=== PATIENT | female | born 1955 | race Hispanic/Latino ===

== ENCOUNTER → 2023-05-10 | Outpatient (CLI) | payer MEDICARE ==
[~2023-05-10] MED LIST: LIDOCAINE HCL 4% LTA SOL 4 ML VIAL TP ONE
== END | disposition home or self-care (01) ==
LOC: WHH 10:55
PROVIDERS: ATTEND Nurse Practitioner Family
DX: T81.89XA Other complications of procedures, not elsewhere classified, initial encounter (principal); S21.102D Unspecified open wound of left front wall of thorax without penetration into thoracic cavity, subsequent encounter; E11.622 Type 2 diabetes mellitus with other skin ulcer; L98.491 Non-pressure chronic ulcer of skin of other sites limited to breakdown of skin; I10 Essential (primary) hypertension; E11.65 Type 2 diabetes mellitus with hyperglycemia; F41.9 Anxiety disorder, unspecified; F17.290 Nicotine dependence, other tobacco product, uncomplicated; Z85.3 Personal history of malignant neoplasm of breast; Z90.710 Acquired absence of both cervix and uterus; Z90.12 Acquired absence of left breast and nipple; X58.XXXD Exposure to other specified factors, subsequent encounter; Y83.8 Other surgical procedures as the cause of abnormal reaction of the patient, or of later complication, without mention of misadventure at the time of the procedure; Y92.89 Other specified places as the place of occurrence of the external cause
CPT/HCPCS: G0463; A6197; A4450

== ENCOUNTER → 2023-05-17 | Outpatient (CLI) | payer MEDICARE | END | disposition home or self-care (01) | LOC: WHH 10:02 | PROVIDERS: ATTEND Nurse Practitioner Family | DX: T81.89XD Other complications of procedures, not elsewhere classified, subsequent encounter (principal); L89.153 Pressure ulcer of sacral region, stage 3; S21.102D Unspecified open wound of left front wall of thorax without penetration into thoracic cavity, subsequent encounter; E11.622 Type 2 diabetes mellitus with other skin ulcer; L98.491 Non-pressure chronic ulcer of skin of other sites limited to breakdown of skin; I10 Essential (primary) hypertension; E11.65 Type 2 diabetes mellitus with hyperglycemia; F41.9 Anxiety disorder, unspecified; F17.290 Nicotine dependence, other tobacco product, uncomplicated; Z85.3 Personal history of malignant neoplasm of breast; Z90.710 Acquired absence of both cervix and uterus; Z90.12 Acquired absence of left breast and nipple; X58.XXXD Exposure to other specified factors, subsequent encounter; Y83.8 Other surgical procedures as the cause of abnormal reaction of the patient, or of later complication, without mention of misadventure at the time of the procedure | CPT/HCPCS: G0463; A6209; A6197 ==

== ENCOUNTER 2023-06-18 14:53 | Inpatient (IN) | payer MEDICARE ==
[~2023-06-18] VITALS: Ht 152.4 cm; Wt 38.8 kg
[2023-06-18] MEDS: ONDANSETRON 4MG INJ IVP ONE (16:30)
[2023-06-18] MEDS: 0.9% NACL 500ML IV.SOLN 500 ML IV ONE (16:30)
[2023-06-18] MEDS: MORPHINE 2 MG SYG IVP ONE (16:30)
[2023-06-18 17:13] LABS: BASOPHILS # (AUTO) 0.08 K/uL (0.00-0.20); BASOPHILS % (AUTO) 0.3 % (0.0-5.0); EOSINOPHILS % (AUTO) 0.8 % (0.0-8.0); HEMATOCRIT 27.5 % (36-48); IMMATURE GRANULOCYTE ABSOLUTE 0.16 K/uL (0-1); LYMPHOCYTES # (AUTO) 3.1 K/uL (1.0-4.8); LYMPHOCYTES % (AUTO) 12.3 % (21.0-51.0); MEAN CORPUSCULAR HEMOGLOBIN 27.1 pg (27.0-33.0); MEAN CORPUSCULAR HGB CONC 32.4 g/dL (32.0-36.0); MEAN CORPUSCULAR VOLUME 83.6 fL (79-99); MONOCYTES # (AUTO) 1.5 K/uL (0.1-1.0); MONOCYTES % (AUTO) 5.8 % (3.0-13.0); NEUTROPHILS % (AUTO) 80.2 % (40.0-77.0); PLATELET COUNT (AUTO) 507 K/uL (130-400); RED BLOOD CELL COUNT(AUTO) 3.29 MIL/uL (4.00-5.50); RED CELL DISTRIBUTION WIDTH 19.6 % (11.0-15.5); WHITE BLOOD COUNT (AUTO) 24.9 K/uL (4.8-10.8)
[2023-06-18 17:21] LABS: CREATININE 0.6 mg/dL (0.5-1.5); POTASSIUM 3.6 mmol/L (3.5-5.1)
[2023-06-18 17:27] LABS: BILIRUBIN,TOTAL 0.4 mg/dL (0.2-1.0); TOTAL PROTEIN, SERUM 6.8 g/dL (6.0-8.3)
[2023-06-18] MEDS: CEFTRIAXONE 1G VIAL IVPB ONE (18:29)
[2023-06-18] MEDS ORDERED: ONDANSETRON 4MG INJ IVP PRN (18:30)
[2023-06-18] MEDS ORDERED: KETOROLAC 30MG VIAL (30MG/ML) IM PRN (18:30)
[2023-06-18 19:08] LABS: COVID19 (SARS ANTIGEN RAPID) PRESUMPTIVE NEGATIVE (NEGATIVE)
[2023-06-18 19:09] LABS: INFLUENZA TYPE A Negative For Type A (NEGATIVE); INFLUENZA TYPE B Negative For Type B (NEGATIVE)
[2023-06-18] MEDS ORDERED: MULT-264 PO (21:26)
[2023-06-18] MEDS ORDERED: FAMO20TA8 PO (21:26)
[2023-06-18] MEDS ORDERED: HONE44PA TP (21:26)
[2023-06-18] MEDS ORDERED: HYDR-3420 PO (21:26)
[2023-06-18] MEDS ORDERED: ACET-2079 PO (21:31)
[2023-06-18 21:52] LABS: APPEARANCE,URINE CLOUDY (CLEAR); BILIRUBIN,URINE NEGATIVE (NEGATIVE); COLOR,URINE YELLOW (YELLOW); GLUCOSE, URINE (UA) NEGATIVE (NEGATIVE); KETONES,URINE NEGATIVE (NEGATIVE); LEUKOCYTE ESTERASE ,URINE NEGATIVE Leu/uL (NEGATIVE); NITRATE,URINE NEGATIVE (NEGATIVE); OCCULT BLOOD,URINE NEGATIVE (NEGATIVE); PROTEIN,URINE 30 mg/dL (NEGATIVE); UROBILINOGEN,URINE 0.2 mg/dL (0.2-1.0)
[2023-06-18 21:54] LABS: ADD UA MICROSCOPIC YES; BACTERIA,URINE RARE /HPF (None Seen); MUCUS,URINE MOD LPF (None Seen); SQUAMOUS EPITHELIAL CELL,UR RARE /HPF (0-2); UNCLASSIFIED CRYSTAL 12 /HPF (None Seen)
[2023-06-18 22:30] VITALS: O2SAT 100
[2023-06-19] VITALS (12 sets, daily range): BP systolic 105–130; BP diastolic 62–77; PULSE 66–105; RESP 18–21; O2SAT 97–100
[2023-06-19] MEDS: KETOROLAC 15MG/ML VIAL (15MG/ML) IV PRN (13:48)
[2023-06-19] MEDS ORDERED: IOHEXOL-350 50ML VIAL IV ONE (15:21)
[2023-06-19] MEDS ORDERED: VANCOMYCIN PROTOCOL PER PHARMACY IV SCH (16:30)
[2023-06-19 16:31] LABS: ABG HCO3 26.5 mmol/L (21.0-28.0); ABG OXYGEN SATURATION 97.3 % (95.0-99.0); ABG PCO2 41 mmHg (32-45); ABG PH 7.427 (7.35-7.450); DEVICE COMMENT RR 2LNC; PO2, ARTERIAL BG 92.8 mmHg (83.0-108.0)
[2023-06-19] MEDS ORDERED: IPRATROPIUM/ALBUTEROL SULFATE 3 ML SOLUTION IH PRN (17:00)
[2023-06-19 17:46] LABS: INR 1.11 (0.85-1.15); PROTHROMBIN TIME 12.8 SEC (9.6-11.6)
[2023-06-19 17:48] LABS: PARTIAL THROMBOPLASTIN TIME 28.8 SEC (26.3-35.5)
[2023-06-19 17:50] LABS: HEMOGLOBIN A1C 5.4 % (4.0-6.0)
[2023-06-19] MEDS ORDERED: CEFTRIAXONE 1G VIAL IVPB SCH (18:30)
[2023-06-19] MEDS: 0.9%NACL 1000ML 1,000 ML IV SCH (18:49)
[2023-06-19] MEDS: CEFEPIME HCL 2 GM VIAL IVPB SCH (18:51)
[2023-06-19] MEDS: VANCOMYCIN 500MG+NS 100ML 100 ML IV SCH (20:27)
[2023-06-20] VITALS (8 sets, daily range): BP systolic 124–134; BP diastolic 65–74; PULSE 48–95; RESP 16–21; O2SAT 93–100
[2023-06-20 15:08] LABS: HEMATOCRIT 26.3 % (36-48); MEAN CORPUSCULAR HEMOGLOBIN 26.4 pg (27.0-33.0); MEAN CORPUSCULAR HGB CONC 30.8 g/dL (32.0-36.0); MEAN CORPUSCULAR VOLUME 85.7 fL (79-99); RED BLOOD CELL COUNT(AUTO) 3.07 MIL/uL (4.00-5.50); RED CELL DISTRIBUTION WIDTH 19.7 % (11.0-15.5); WHITE BLOOD COUNT (AUTO) 24.7 K/uL (4.8-10.8)
[2023-06-20 15:18] LABS: CREATININE 0.6 mg/dL (0.5-1.5); POTASSIUM 3.4 mmol/L (3.5-5.1)
[2023-06-20 15:25] LABS: INR 1.18 (0.85-1.15); PROTHROMBIN TIME 13.5 SEC (9.6-11.6)
[2023-06-20 15:26] LABS: PARTIAL THROMBOPLASTIN TIME 29.2 SEC (26.3-35.5)
[2023-06-20] MEDS ORDERED: IOHEXOL-350 75 ML VIAL IV ONE (20:45)
[2023-06-21] VITALS (10 sets, daily range): BP systolic 102–139; BP diastolic 53–76; PULSE 79–106; RESP 16–20; O2SAT 94–97
[2023-06-21 05:21] LABS: BASOPHILS # (AUTO) 0.09 K/uL (0.00-0.20); BASOPHILS % (AUTO) 0.4 % (0.0-5.0); EOSINOPHILS # (AUTO) 0.31 K/uL (0.00-0.70); EOSINOPHILS % (AUTO) 1.4 % (0.0-8.0); HEMATOCRIT 27.6 % (36-48); IMMATURE GRANULOCYTE ABSOLUTE 0.19 K/uL (0-1); LYMPHOCYTES # (AUTO) 1.7 K/uL (1.0-4.8); LYMPHOCYTES % (AUTO) 7.8 % (21.0-51.0); MEAN CORPUSCULAR HEMOGLOBIN 26.7 pg (27.0-33.0); MEAN CORPUSCULAR HGB CONC 30.1 g/dL (32.0-36.0); MEAN CORPUSCULAR VOLUME 88.7 fL (79-99); MONOCYTES # (AUTO) 1.3 K/uL (0.1-1.0); MONOCYTES % (AUTO) 5.7 % (3.0-13.0); NEUTROPHILS # (AUTO) 18.6 K/uL (1.8-7.7); NEUTROPHILS % (AUTO) 83.8 % (40.0-77.0); PLATELET COUNT (AUTO) 487 K/uL (130-400); RED BLOOD CELL COUNT(AUTO) 3.11 MIL/uL (4.00-5.50); RED CELL DISTRIBUTION WIDTH 19.6 % (11.0-15.5); WHITE BLOOD COUNT (AUTO) 22.2 K/uL (4.8-10.8)
[2023-06-21 05:45] LABS: CREATININE 0.6 mg/dL (0.5-1.5); POTASSIUM 3.3 mmol/L (3.5-5.1)
[2023-06-21] MEDS ORDERED: ENOXAPARIN SODIUM 40 MG/0.4 ML SYRINGE SQ SCH (09:00)
[2023-06-21] MEDS: ENOXAPARIN SODIUM 30 MG/0.3 ML SQ SCH (10:32)
[2023-06-21] MEDS: PANTOPRAZOLE 40 MG/VIAL IVP SCH (10:32)
[2023-06-21] MEDS ORDERED: HONEY 1 APPL/ML TUBE TP SCH (14:30)
[2023-06-22] VITALS (8 sets, daily range): BP systolic 121–163; BP diastolic 47–78; PULSE 55–107; RESP 16–21; O2SAT 95–100
[2023-06-22 05:56] LABS: HEMATOCRIT 24.1 % (36-48); MEAN CORPUSCULAR VOLUME 84.6 fL (79-99); RED BLOOD CELL COUNT(AUTO) 2.85 MIL/uL (4.00-5.50); RED CELL DISTRIBUTION WIDTH 19.3 % (11.0-15.5); WHITE BLOOD COUNT (AUTO) 21.2 K/uL (4.8-10.8)
[2023-06-22 06:08] LABS: CREATININE 0.5 mg/dL (0.5-1.5)
[2023-06-22 06:15] LABS: POTASSIUM 2.7 mmol/L (3.5-5.1)
[2023-06-22] MEDS ORDERED: POTASSIUM CHLORIDE 20MEQ/100ML 100 ML IV PRN (06:30)
[2023-06-22] MEDS: POTASSIUM CHLORIDE 20MEQ/100ML 100 ML IV PRN (06:30)
[2023-06-22] MEDS: ARGIN/GLUT/CAHMB/COLLAG/MV-MIN 1 EACH POWD.PACK PO SCH (08:00)
[2023-06-22] MEDS: VANCOMYCIN 1G/250ML KIT 250 ML IV SCH (21:11)
[2023-06-23] VITALS (8 sets, daily range): BP systolic 126–142; BP diastolic 57–76; PULSE 70–91; RESP 16–20; O2SAT 96–100
[2023-06-23] MEDS: VANCOMYCIN 500MG+NS 100ML 100 ML IV SCH (08:14)
[2023-06-24] VITALS (11 sets, daily range): BP systolic 126–170; BP diastolic 61–75; PULSE 76–101; RESP 15–18; O2SAT 95–99
[2023-06-24 08:25] LABS: BASOPHILS # (AUTO) 0.06 K/uL (0.00-0.20); BASOPHILS % (AUTO) 0.2 % (0.0-5.0); EOSINOPHILS # (AUTO) 0.38 K/uL (0.00-0.70); EOSINOPHILS % (AUTO) 1.6 % (0.0-8.0); HEMATOCRIT 25.5 % (36-48); LYMPHOCYTES # (AUTO) 2.3 K/uL (1.0-4.8); LYMPHOCYTES % (AUTO) 9.2 % (21.0-51.0); MEAN CORPUSCULAR HEMOGLOBIN 27.1 pg (27.0-33.0); MEAN CORPUSCULAR HGB CONC 31.8 g/dL (32.0-36.0); MEAN CORPUSCULAR VOLUME 85.3 fL (79-99); MONOCYTES # (AUTO) 1.2 K/uL (0.1-1.0); MONOCYTES % (AUTO) 4.9 % (3.0-13.0); NEUTROPHILS # (AUTO) 20.4 K/uL (1.8-7.7); NEUTROPHILS % (AUTO) 83.3 % (40.0-77.0); PLATELET COUNT (AUTO) 402 K/uL (130-400); RED BLOOD CELL COUNT(AUTO) 2.99 MIL/uL (4.00-5.50); RED CELL DISTRIBUTION WIDTH 19.4 % (11.0-15.5); WHITE BLOOD COUNT (AUTO) 24.5 K/uL (4.8-10.8)
[2023-06-24 08:59] LABS: ALBUMIN 1.7 g/dL (3.5-5.0); BILIRUBIN,TOTAL 0.4 mg/dL (0.2-1.0); CREATININE 0.6 mg/dL (0.5-1.5); TOTAL PROTEIN, SERUM 5.6 g/dL (6.0-8.3)
[2023-06-24 09:39] LABS: POTASSIUM 2.8 mmol/L (3.5-5.1)
[2023-06-24] MEDS: ACETAMINOPHEN 325 MG TAB PO PRN (14:57)
[2023-06-24] MEDS: POTASSIUM CHLORIDE 10% ELIXIR 20 MEQ/15 ML UDCUP PO PRN (22:32)
[2023-06-25] VITALS (9 sets, daily range): BP systolic 132–141; BP diastolic 68–88; PULSE 91–110; RESP 16–20; O2SAT 94–96
[2023-06-25 05:51] LABS: BASOPHILS # (AUTO) 0.09 K/uL (0.00-0.20); BASOPHILS % (AUTO) 0.3 % (0.0-5.0); EOSINOPHILS % (AUTO) 1.4 % (0.0-8.0); HEMATOCRIT 23.9 % (36-48); IMMATURE GRANULOCYTE ABSOLUTE 0.21 K/uL (0-1); MEAN CORPUSCULAR HEMOGLOBIN 27.1 pg (27.0-33.0); MEAN CORPUSCULAR HGB CONC 31.8 g/dL (32.0-36.0); MEAN CORPUSCULAR VOLUME 85.4 fL (79-99); MONOCYTES # (AUTO) 1.5 K/uL (0.1-1.0); MONOCYTES % (AUTO) 5.5 % (3.0-13.0); NEUTROPHILS # (AUTO) 23.9 K/uL (1.8-7.7); NEUTROPHILS % (AUTO) 85.1 % (40.0-77.0); PLATELET COUNT (AUTO) 392 K/uL (130-400); WHITE BLOOD COUNT (AUTO) 28.1 K/uL (4.8-10.8)
[2023-06-25 06:44] LABS: CREATININE 0.5 mg/dL (0.5-1.5)
[2023-06-25 06:59] LABS: POTASSIUM 2.3 mmol/L (3.5-5.1)
[2023-06-25] MEDS: KCL 20 MEQ ERTAB PO PRN (20:27)
[2023-06-26] VITALS (11 sets, daily range): BP systolic 104–165; BP diastolic 71–90; PULSE 56–116; RESP 15–20; O2SAT 94–99
[2023-06-26] MEDS: VANCOMYCIN 500MG+NS 100ML 100 ML IV SCH (11:12)
[2023-06-27 04:00] VITALS: BP 158/81; PULSE 95; RESP 16
[2023-06-27 07:13] VITALS: PULSE 79; RESP 20; O2SAT 98
[2023-06-27 08:00] VITALS: O2SAT 95
[2023-06-27 09:15] VITALS: BP 148/67; PULSE 76; RESP 18
[2023-06-27 11:32] VITALS: BP 156/68; PULSE 87; RESP 18
== END 2023-06-27 17:39 | DRG 871 ==
LOC: EDH 14:53 → EDHIP 18:20 → 3BH 21:17
PROVIDERS: ADMIT Internal Medicine Hematology & Oncology; ATTEND Internal Medicine Hematology & Oncology
DX: A41.9 Sepsis, unspecified organism (principal); E43 Unspecified severe protein-calorie malnutrition; J96.21 Acute and chronic respiratory failure with hypoxia; C78.01 Secondary malignant neoplasm of right lung; C78.02 Secondary malignant neoplasm of left lung; M54.9 Dorsalgia, unspecified; R53.1 Weakness; F03.90 Unspecified dementia, unspecified severity, without behavioral disturbance, psychotic disturbance, mood disturbance, and anxiety; E11.9 Type 2 diabetes mellitus without complications; C50.919 Malignant neoplasm of unspecified site of unspecified female breast; L98.429 Non-pressure chronic ulcer of back with unspecified severity; E88.A Wasting disease (syndrome) due to underlying condition
CPT/HCPCS: 36415; 36600; 70460; 71045; 71250; 71270; 74230; 80048; 80053; 80202; 81001; 82306; 82435; 82607; 82746; 82803; 82947; 82948; 83036; 83540; 83605; 83735; 83880; 84132; 84145; 84295; 84425; 85018; 85025; 85027; 85378; 85610; 85730; 86606; 86612; 87040; 87088; 87426; 87635; 87641; 87804; 87880; 92526; 92610; 92611; 93005; 93970; 94640; 94664; 96365; 96375; 99291; C1894; C9113; G0378; G0463; J0360; J0456; J0692; J0696; J1650; J1885; J1940; J2270; J2405; J2930; J3370; J3480; J3490; J7030; Q9967; A6197; C1750